=== PATIENT | female | born 1970 | race Caucasian/White ===

== ENCOUNTER 2016-08-26 03:44 | Emergency (ER) | payer SELFPAY ==
[~2016-08-26] VITALS: Ht 157.5 cm; Wt 65.4 kg
[2016-08-26] MEDS ORDERED: BISA-49 PO (04:11)
[2016-08-26] MEDS ORDERED: CHOL20003 PO (04:12)
[2016-08-26] MEDS ORDERED: OXYB5TAB7 PO (04:13)
[2016-08-26] MEDS ORDERED: OMEP-110 PO (04:15)
[2016-08-26 04:50] LABS: HCG UR OBC PASS
[2016-08-26 05:17] LABS: BLOOD UREA NITROGEN 9 mg/dL (7-18)
[2016-08-26 05:20] LABS: ASPARTATE AMINO TRANSFERASE 9 U/L (15-37)
[2016-08-26 05:24] VITALS: BP 101/67
== END 2016-08-26 06:00 | disposition home or self-care (01) ==
LOC: ED 05:51
DX: R10.13 Epigastric pain (principal)
CPT/HCPCS: 36415; 74022; 80053; 81003; 81025; 83690; 85025; 93005